=== PATIENT | female | born 1980 | race Caucasian/White ===

== ENCOUNTER 2023-05-19 18:27 | Emergency (ER) | payer SELFPAY ==
[~2023-05-19] VITALS: Ht 154.9 cm; Wt 75.0 kg
[2023-05-19 18:43] VITALS: TEMP 98; O2SAT 99
[2023-05-19 19:52] LABS: BASOPHILS % 0.6 % (0.0-2.0); EOSINOPHILS % 3.6 % (0.0-5.0); HEMATOCRIT. 38.8 % (36.0-48.0); HEMOGLOBIN. 13.5 g/dL (12.0-16.0); MEAN CORPUSCULAR HEMOGLOBIN 30.2 pg (28.0-32.0); MEAN CORPUSCULAR VOLUME 87.1 fL (81.0-99.0); MEAN PLATELET VOLUME 7.9 fl (7.4-10.4); NEUTROPHILS % 44.8 % (40.0-76.0); PLATELET 222 x1000/uL (130-400); RED BLOOD CELL COUNT 4.45 mill/uL (4.2-5.4); RED CELL DISTRIBUTION WIDTH 13.8 % (11.6-14.6)
[2023-05-19 19:58] LABS: CHLORIDE 109 mEq/L (98-107)
[2023-05-19 20:07] LABS: PROTHROMBIN TIME 10.4 sec (9.6-11.0)
[2023-05-19] MEDS ORDERED: DEXAMETHASONE 4MG/ML 1ML VIAL IM STA (23:52)
[2023-05-19] MEDS ORDERED: GABA800T97 MT (23:55)
[2023-05-19] MEDS ORDERED: CARI250T MT (23:55)
[2023-05-19] MEDS ORDERED: PRED1TAB MT (23:55)
[2023-05-19] MEDS ORDERED: HYDR25TA MT (23:55)
[2023-05-19] MEDS ORDERED: CYCL10TA21 MT (23:56)
[2023-05-20] MEDS ORDERED: KETOROLAC 15MG/ML VIAL IM ONE
[2023-05-20 00:07] LABS: CLARITY URINE CLEAR (CLEAR); COLOR URINE YELLOW (YELLOW); KETONES URINE NEGATIVE (NEGATIVE); LEUKOCYTE ESTERASE URINE NEGATIVE (NEGATIVE); NITRITE URINE NEGATIVE (NEGATIVE); OCCULT BLOOD URINE NEGATIVE (NEGATIVE); PH URINE 5.5 (4.5-8.0); PROTEIN URINE NEGATIVE (NEGATIVE); SPECIFIC GRAVITY URINE 1.019 (1.005-1.030); UROBILINOGEN URINE 0.2 E.U./dL (0.2-1.0)
[2023-05-20 00:17] VITALS: BP 145/89; PULSE 91; RESP 19
== END 2023-05-20 00:20 | disposition home or self-care (01) ==
LOC: ER 18:47
DX: M06.9 Rheumatoid arthritis, unspecified (principal); I10 Essential (primary) hypertension
CPT/HCPCS: 80053; 81003; 81025; 85025; 85610; 84484; 36415; 71045; 93005; 99285; 96372; J1100; J1885; Z7610 ×2